=== PATIENT | female | born 1970 | race Caucasian/White ===

== ENCOUNTER 2021-05-05 11:58 | Outpatient (REF) | payer OTHER, SELFPAY ==
--- NOTE | ~2021-05-05 | MM_ITS ---
EXAMINATION: MM SCREENING DIGITAL BREAST TOMOSYNTHESIS, BILATERAL CLINICAL INFORMATION: Screening. Asymptomatic. The lifetime risk of breast cancer based on the Tyrer-Cuzick Model is 12%. COMPARISON: Outside mammography: 03/04/2017, 10/01/2010 ([facility]). TECHNIQUE: Digital breast tomosynthesis is performed in both the craniocaudal and mediolateral oblique views along with computer-aided detection (CAD). Synthesized 2D images are generated from the tomosynthesis. Additional bilateral CC views and additional right MLO view are provided. FINDINGS: There are scattered areas of fibroglandular density (ACR BI-RADS breast composition Category b). There are no significant masses, abnormal calcifications, or other abnormalities. Parenchymal pattern is similar to prior outside studies. No developing density. No significant changes. MM/MM tomosynthesis screening BI IMPRESSION: No mammographic evidence of malignancy. ASSESSMENT: BI-RADS 1: Negative RECOMMENDATION: Routine annual mammography screening. This patient's information was entered into a reminder system with a target due date for their next mammogram.
== END 2021-05-05 11:59 | disposition home or self-care (01) ==
LOC: HO.MAMMO 11:58
PROVIDERS: Visit Provider Internal Medicine
DX: Z12.31 Encounter for screening mammogram for malignant neoplasm of breast (principal)
CPT/HCPCS: 77063; 77067

== ENCOUNTER 2023-01-22 13:12 | Outpatient (REF) | payer BC, SELFPAY ==
--- NOTE | ~2023-01-22 | MM_ITS ---
EXAMINATION: MM SCREENING DIGITAL BREAST TOMOSYNTHESIS, BILATERAL CLINICAL INFORMATION: Screening. Asymptomatic. The lifetime risk of breast cancer based on the Tyrer-Cuzick Model is 11.4%. COMPARISON: Mammography: This study is compared with prior exams dating back to 2017. TECHNIQUE: Digital breast tomosynthesis is performed in both the craniocaudal and mediolateral oblique views along with computer-aided detection (CAD). Synthesized 2D images are generated from the tomosynthesis. FINDINGS: There are scattered areas of fibroglandular density (ACR BI-RADS breast composition Category b). There are no significant masses, abnormal calcifications, or other abnormalities. MM/MM tomosynthesis screening BI IMPRESSION: No mammographic evidence of malignancy. ASSESSMENT: BI-RADS BI-RADS 1 - Negative RECOMMENDATION: Routine annual mammography screening. 1 year F/U This examination should not preclude the clinical evaluation of a suspicious palpable abnormality. This patient's information was entered into a reminder system with a target due date for their next mammogram.
== END 2023-01-22 13:13 | disposition home or self-care (01) ==
LOC: HO.MAMMO 13:12
PROVIDERS: PCP Internal Medicine; Referring Provider Internal Medicine; Visit Provider Obstetrics & Gynecology
DX: Z12.31 Encounter for screening mammogram for malignant neoplasm of breast (principal)
CPT/HCPCS: 77063; 77067

== ENCOUNTER → 2023-01-22 13:15 | Outpatient (BNV) | payer BC, SELFPAY | PROVIDERS: PCP Internal Medicine; Referring Provider Internal Medicine; Visit Provider Radiology Diagnostic Radiology | DX: Z12.31 Encounter for screening mammogram for malignant neoplasm of breast (principal) | CPT/HCPCS: 77063; 77067 ==

== ENCOUNTER 2023-09-27 10:59 | Day surgery (SDC) | payer BC, SELFPAY ==
--- NOTE | 2023-09-24 12:44 | HO.ANESPROP2 ---
Documented by User: Kassidy Kolb NP 09/24/23 12:45 HPI - Anesthesia Eval Consult details Narrative: 52yo F for Colonoscopy [facility] Past Medical History Medical History Post-COVID chronic cough Neck pain Migraine HTN (hypertension) Surgical History Surgical History History of esophagogastroduodenoscopy (EGD) Hx of appendectomy Hx of section Social History Social History Patient Tobacco Use Status: Never used Tobacco Use of substances other than those prescribed or required for medical reasons: No Are you DNR?: No Advance Directives: No Advance Directives Information Provided: Yes Meds Allergies Allergy/AdvReac Type Severity Reaction Status Date / Time codeine [Codeine] Allergy Mild ITCHING Verified 09/27/23 11:46 Home Medications Medication Instructions Recorded Confirmed Last Taken Type clonazepam 0.5 mg tablet 0.5 mg PO TID 09/24/23 09/27/23 Unknown History clonidine HCl 0.1 mg tablet 0.2 mg PO BEDTIME 09/24/23 09/27/23 Unknown History fluticasone propionate 115 2 puff inhalation BID PRN 09/24/23 09/27/23 Unknown History mcg-salmeterol 21 mcg/actuation Shortness Of Breath HFA inhaler (Advair HFA) hydrocodone 10 mg-chlorpheniramine 5 ml PO Q12H 09/24/23 09/27/23 Unknown History 8 mg/5 mL oral susp extend.rel 12hr metoprolol succinate 50 mg 50 mg PO DAILY 09/24/23 09/27/23 Unknown History tablet,extended release 24 hr omeprazole 40 mg capsule,delayed 40 mg PO DAILY 09/24/23 09/27/23 Unknown History release sumatriptan succinate 100 mg tablet 100 mg PO QD-BID 09/24/23 09/27/23 Unknown History tramadol 50 mg tablet 50 mg PO QID PRN Pain 09/24/23 09/27/23 Unknown History Assessment and Plan Assessment Anesthesia Assessment: Chart Reviewed Documented by User: Soheila Walker MD 09/27/23 13:03 [facility] Past Medical History Medical History Post-COVID chronic cough Neck pain Migraine HTN (hypertension) Family History Family history of problems with anesthesia: No Surgical History Surgical History History of esophagogastroduodenoscopy (EGD) Hx of appendectomy Hx of section History of Problems with Anesthesia: No Social History Social History Patient Tobacco Use Status: Never used Tobacco Use of substances other than those prescribed or required for medical reasons: No Are you DNR?: No Advance Directives: No Advance Directives Information Provided: Yes Meds Allergies Allergy/AdvReac Type Severity Reaction Status Date / Time codeine [Codeine] Allergy Mild ITCHING Verified 09/27/23 11:46 Home Medications Medication Instructions Recorded Confirmed Last Taken Type clonazepam 0.5 mg tablet 0.5 mg PO TID 09/24/23 09/27/23 Unknown History clonidine HCl 0.1 mg tablet 0.2 mg PO BEDTIME 09/24/23 09/27/23 Unknown History fluticasone propionate 115 2 puff inhalation BID PRN 09/24/23 09/27/23 Unknown History mcg-salmeterol 21 mcg/actuation Shortness Of Breath HFA inhaler (Advair HFA) hydrocodone 10 mg-chlorpheniramine 5 ml PO Q12H 09/24/23 09/27/23 Unknown History 8 mg/5 mL oral susp extend.rel 12hr metoprolol succinate 50 mg 50 mg PO DAILY 09/24/23 09/27/23 Unknown History tablet,extended release 24 hr omeprazole 40 mg capsule,delayed 40 mg PO DAILY 09/24/23 09/27/23 Unknown History release sumatriptan succinate 100 mg tablet 100 mg PO QD-BID 09/24/23 09/27/23 Unknown History tramadol 50 mg tablet 50 mg PO QID PRN Pain 09/24/23 09/27/23 Unknown History Exam Airway Mallampati Class: II TM Dist: >3cm Neck ROM: Full Heart: rrr Lungs: cta Assessment and Plan Assessment Anesthesia Assessment: Anesthesia Plan Discussed (obesity) Final Anesthetic Review Family History of Problems with Anesthesia: No History of Problems with Anesthesia: No NPO: Yes ASA Class: III Final Preanesthetic Review: No Changes in Pt Med Stat, Meds/Allgs Chart Reviewed, Consent Obtained/Reviewed and Anes Risks/Benef Reviewed Patient Risk: Intermediate Procedure Risk: Low Anesthetic Plan Anesthetic Plan: MAC: Disposition: Standard PACU
[2023-09-27 11:43] VITALS: BMI 48.8
[2023-09-27 11:56] VITALS: BP 150/84; PULSE 85; RESP 16; TEMP 37.9; O2SAT 92
[2023-09-27] MEDS: Lactated Ringers 1,000 ML 100 ML IVCONT (12:20)
[2023-09-27 13:34] VITALS: BP 146/82; PULSE 100; RESP 16; TEMP 37.2; O2SAT 99
--- NOTE | 2023-09-27 13:34 | P.BOP_ITS ---
Brief Operative Note Date of Service: 09/27/23 Pre-op diagnosis: Screening Post-op diagnosis: other (Rectal polyps) Procedure: Colonoscopy to the cecum with hot snare polypectomy x 1, and bx/removal of polyp Surgeon: Jalil Fleming MD Anesthesia: MAC Was an Life Sciences Teacher used for this Procedure?: No Estimated blood loss (mL): 2.0 Pathology: other (A. Rectal polyps) Condition: stable Disposition: PACU
[2023-09-27 13:49] VITALS: BP 140/73; PULSE 99; RESP 16; O2SAT 99
--- NOTE | 2023-09-27 14:01 | OP_ITS ---
DATE OF SERVICE: 09/27/2023 SURGEON: Jalil Fleming MD INDICATIONS: The patient presents for evaluation of colorectal cancer screening and family history of colon cancer. Full consent has been obtained from her for this, including risks of bleeding and perforation. PREOPERATIVE DIAGNOSIS: POSTOPERATIVE DIAGNOSIS: PROCEDURE PERFORMED: Colonoscopy to the cecum with hot snare polypectomy x1 and biopsy and removal of polyp. ESTIMATED BLOOD LOSS: COMPLICATIONS: ANESTHESIA: Monitored anesthesia care. ASSISTANTS: SPECIMENS: PREOPERATIVE DIAGNOSES: Colorectal cancer screening, family history of colon cancer. POSTOPERATIVE DIAGNOSES: Colorectal cancer screening, family history of colon cancer, rectal polyps, internal and external hemorrhoids, mild diverticulosis. DESCRIPTION OF PROCEDURE: The patient was placed in left decubitus position. The digital rectal exam revealed external hemorrhoids. The Olympus video pediatric colonoscope was then entered into the rectum and advanced easily to the cecum. Once in the cecum, I did identify normal-appearing cecal pouch with appendiceal orifice and a normal-appearing ileocecal valve. The entire cecum and ileocecal valve appeared normal. The scope was slowly withdrawn assessing all mucosal surfaces carefully. Preparation was excellent. There was a mild amount of sigmoid diverticulosis. I did not visualize any sign of colitis nor angiodysplasia. In the rectum, seen both the forward viewing and retroflexed position, was an approximately 10 mm distal rectal polyp, which was removed by hot snare polypectomy in the forward viewing position. The polyp was retrieved by suction. The polypectomy site appeared clean, without any sign of residual polyp nor bleeding. Also in the rectum, was a 3 mm polyp, which was removed by cold biopsy forceps and placed in the same container. Internal hemorrhoids were noted in the retroflexed position as well. The scope was straightened and withdrawn from the patient. She tolerated the procedure well and was returned to the recovery area in stable condition. IMPRESSION: 1. Rectal polyps. 2. Mild diverticulosis. 3. Internal and external hemorrhoids. PLAN: The results of the pathology will be checked. I would recommend a repeat colonoscopy in 5 years given her family history. She was advised not to use any aspirin and NSAIDs for 1 week. She will, otherwise, see me on a p.r.n. basis. Jalil Fleming MD RMJaime/ANISA / [phone]
[2023-09-27 14:05] VITALS: BP 134/83; PULSE 80; RESP 16; TEMP 36.5; O2SAT 95
== END 2023-09-27 14:35 | disposition home or self-care (01) ==
PROVIDERS: PCP Internal Medicine; Visit Provider Internal Medicine
PROC: 0DJD8ZZ Inspection of Lower Intestinal Tract, Via Natural or Artificial Opening Endoscopic (ICD-10-PCS; CPT 45378; principal; 2023-09-27 12:50)
DX: Z12.11 Encounter for screening for malignant neoplasm of colon (principal); Z80.0 Family history of malignant neoplasm of digestive organs; Z83.719 Family history of colon polyps, unspecified; K62.1 Rectal polyp; K57.30 Diverticulosis of large intestine without perforation or abscess without bleeding; K64.8 Other hemorrhoids; K64.4 Residual hemorrhoidal skin tags; I10 Essential (primary) hypertension; G43.909 Migraine, unspecified, not intractable, without status migrainosus; Z79.51 Long term (current) use of inhaled steroids; Z79.899 Other long term (current) drug therapy
CPT/HCPCS: 45385; 45380; 88305; J2704

== ENCOUNTER 2024-01-28 12:57 | Outpatient (REF) | payer BC, SELFPAY | END 2024-01-28 12:58 | disposition home or self-care (01) | LOC: HO.MAMMO 12:57 | PROVIDERS: PCP Internal Medicine; Visit Provider Internal Medicine | DX: Z12.31 Encounter for screening mammogram for malignant neoplasm of breast (principal) | CPT/HCPCS: 77063; 77067 ==

== ENCOUNTER → 2024-01-28 13:00 | Outpatient (BNV) | payer BC, SELFPAY | PROVIDERS: PCP Internal Medicine; Visit Provider Radiology Diagnostic Radiology | DX: Z12.31 Encounter for screening mammogram for malignant neoplasm of breast (principal) | CPT/HCPCS: 77063; 77067 ==

== ENCOUNTER 2025-03-09 10:10 | Outpatient (AMB) | payer BC, SELFPAY ==
--- OUTSIDE RECORDS SUMMARY | 2023-09-27 08:10 | XMS_ITS ---
Author Organization [facility] Address [address] [place] [address] Care Team Providers Care Upholstery Covers Inspector Name Role Phone Nav MORIN, Maria E Primary Care Provider Jalil Alvarez [phone] REASON FOR VISIT screening,fam hx colon ca Problems Problem Type SNOMED Code ICD Code Onset Dates Problem Status W/U Status Risk Notes Problem Diverticular disease of colon (967316877) Diverticulosis of large intestine without perforation or abscess without bleeding (K57.30) Active confirmed Encounters Encounter Location Date Provider Diagnosis [facility] [place] Outpatient [address] [place], [place] [id number] 09/27/2023 Jalil Fleming Encounter for scre ening colonoscopy Z12.11 ; Rectal polyp K62.1 ; Family history of colon cancer Z80.0 ; Diverticulosis of large intestine without perforation or abscess without bleeding K57.30 and Other hemorrhoids K64.8 Assessments Encounter Date Diagnosis (ICD Code) Assessment Notes Treatment Notes Treatment Clinical Notes Section Notes 09/27/2023 Encounter for screening colonoscopy (ICD-10 - Z12.11) 09/27/2023 Rectal polyp (ICD-10 - K62.1) 09/27/2023 Family history of colon cancer (ICD-10 - Z80.0) 09/27/2023 Diverticulosis of large intestine without perforation or abscess without bleeding (ICD-10 - K57.30) 09/27/2023 Other hemorrhoids (ICD-10 - K64.8) Plan Of Treatment No Information Progress Notes * FLORA FALCON MDOB:1970 ( 54 yo F)Acc No.[id number]:09/27/2023 COLON WITH MAC Patient: T AFT, FLORA M Provider: Shanika Fleming MD :1970 A ge:52 Y S ex:Female Date:09/27/2023 Address:[address] [place], [place] [id number] Pcp:Maria E Chopra MD Subjective: * Chief Complaints: * 1 . Screening,fam hx colon ca. * Medical History: Objective: * Vitals: Assessment: * Assessment: 1. E ncounter for screening colonoscopy - Z12.11 (Primary) 2 . R ectal polyp - K62.1 3 . F amily history of colon cancer - Z80.0 4 . D iverticulosis of large intestine without perforation or abscess without bleeding - K57.30 5 . O ther hemorrhoids - K64.8 Plan: * Treatment: * Procedure Codes: 4 5385 LESION REMOVAL COLONOSCOPY, Modifiers: [place] , [address] COLONOSCOPY AND BIOPSY, Modifiers: 59 , PT * * The named appointment provid er may or may not be the originator of this progress note, and it is not deemed complete until electronically signed by the appointment provider. Sign off status: Pending * Provider: Shanika Fleming MD Date: 0 09/27/2023 Generated for Aisha beal/Shayan/Nicholasitting on: 0 03/09/2025 11:08 AM EDT
--- OUTSIDE RECORDS SUMMARY | 2024-12-08 07:00 | XMS_ITS ---
Author Organization [facility] [address] Address [address] [place] [address] Care Team Providers Care Medical Lab Director Name Role Phone Maria E Chopra Primary Care Provider IDALIA [facility] [phone] Encounters Encounter Location Date Provider Diagnosis [facility] [address] [address] 12/08/2024 IDALIA QUARLES Plan Of Treatment No Information Progress Notes * Nikhil FALCONOB:1970 (54 yo F)Acc No.[id number]:12/08/2024 Patient: Ashley RAY Provider: Renzo QUARLES PA-C :1970 A ge:54 Y S ex:Female Date:12/08/2024 Address:[address] [place], [place] [id number] Pcp:Maria E Chopra Subjective: * Chief Complaints: * * Medical History: Objective: * Vitals: Assessment: Plan: * Treatment: * Images: Billing Information: * Visit Code: * Procedure Codes: * Electronic signature of MICKI QUARLES PA-C on 03/09/2025 at 11:08 AM EDT Sign off status: Pending * Provider: Renzo QUARLES PA-C Date: 0 12/08/2024 Generated for Aisha beal/Shayan/eTchasityitting on: 03/09/2025 11:08 AM EDT
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
[2025-03-09 10:21] VITALS: BP 158/90; RESP 16; O2SAT 95; BMI 49.4
--- OUTSIDE RECORDS SUMMARY | 2025-03-09 11:08 | XMS_ITS | Patient Health Record ---
Author Organization [facility] Address [address] [place] [address] Care Team Providers Care Combatant Diver Officer Name Role Phone Maria E Chopra MD Primary Care Provider Jalil Alvarez [phone] Allergies No Known Allergies Reason For Referral No Information Medications Medication SIG (Take, Route, Frequency, Duration) Notes Start Date End Date Status traMADol HCl 50 MG TAKE 1 TABLET BY MOUTH 4 TIMES A DAY NEEDED FOR 30 DAYS Oral for 30 Active SUMAtriptan Succinate 100 MG TAKE 1 TABLET AT ONSET. MAY REPEAT DOSE ONCE IN 4 HOURS FOR A MAXIMUM OF 2 TABLETS A DAY Oral for 30 PRN Active clonazePAM 0.5 MG Oral for 30 Active cloNIDine HCl 0.1 MG Oral for 90 Active Hydrocod Phan-Chlorphe Phan ER 10-8 MG/5ML TAKE 5ML BY MOUTH EVERY 12 HOURS Oral for 24 Cough syumtvqi-LVS-Ko ssinex Active Advair HFA 115-21 MCG/ACT 2 puffs Inhalation Twice a day PRN 07/09/2023 Active Omeprazole 40 MG Oral for 30 PRN A ctive Metoprolol Tartrate 50 MG TAKE 1 TABLET BY MOUTH ONCE DAILY Oral for 30 Active Immunizations Vaccine Route Administration Date Status Comme nts Influenza Unknown 03/23/2023 Administered Social History Tobacco Use: Social History Observation Description Date Details (start date - stop date) Never Smoker NA - NA Tobacco Use/Smoking Question Answer Notes Patient is a nonsmoker Alcohol Screen Question Answer Notes Did you have a drink containing alcohol in the p ast year? No Points 0 Interpretation Negative Problems Problem Type SNOMED Code ICD Code Onset Dates Problem Status W/U Status Risk Notes Problem 252798993 Colon cancer screening (Z12.11) Active confirmed Problem Diverticular disease of colon (035319197) Diverticulosis of large intestine without perforation or abscess without bleeding (K57.30) Active confirmed Problem 530161171616803 Preprocedural examination (Z01.818) Active confirmed Problem 723272490 Family history o f colon cancer (Z80.0) Active confirmed Encounters Encounter Location Date Provider Diagnosis [facility] [address] [place] [address] 10/16/2024 Jalil Fleming Plan Of Treatment Future Test Test Name Order Date COLONOSCOPY 07/09/2023 Insurance Providers Payer Name Payer Address Payer Phone Subscriber Number Group Number Insured Name Patient Relationship to Insured Coverage Start Date Coverage End Date [facility] [address] [place] [address] [id number] FLORA FALCON Self - patient is the insured Medical (General) History Medical History History ICD Code HTN Migraine Some residual pulmonary issu es including cough from a previous COVID infection Neck pain Denies [place],DM,CVA,Lung disease,renal dise ase Surgical History Surgery Date(Month/Year) 1996 1998 Appendectomy 1979
--- OUTSIDE RECORDS SUMMARY | 2025-03-09 11:08 | XMS_ITS | Patient Health Record ---
Author Organization [facility] Address [address] [place] [address] Support Name Relationship Address Phone TERRIE FLORA Guarantor Unknown [phone] Reason For Referral No Information Medications Medication SIG (Take, Route, Fr equency, Duration) Notes Start Date End Date Status Ibuprofen 800MG 1 ORAL NEEDED FOR PAIN; Duration: -3 Nathanael-MJ 02/13/2013 Active Prometrium 200MG 1 Vaginal DAILY , DA YS 16 TO 25; Duration: 10 Nathanael-MJ 10/24/2013 Active Maxalt-SCIENTIFIC PROGRAMMER 10MG ORAL; Duration: -3 Nathanael-MJ 04/04/2013 Active Problems Problem Type SNOMED Code ICD Code Onset Dates Problem Status W/U Status Risk Notes Problem Obesity (110286070) Obesity, unspecified (278.00) Active confirmed Diag Problem Excessive and frequent menstruation (409227394) Excessive or frequent menstruation (626.2) Active confirmed Diag Problem Metrorrhagia (36357658) Metrorrhagia (626.6) Active confirmed Major Problem Gynecological examination normal (710318128828679) Routine gynecological examination (V72.31) Active confirmed Major Problem Dietary management surveillance (838792076) Dietary surveillance and counseling (V65.3) Active confirmed Diag Problem Exercises teaching, guidance, and counseling (489242780) Exercise counseling (V65.41) Active confirmed Diag Plan Of Treatment No Information Insurance Providers Payer Name Payer Address Payer Phone Subscriber Number Group Number Insured Name Patient Relationship to Insured Coverage Start Date Coverage End Date [employer] [address] [place], [place] [address] [phone] [id number] FLORA FALCON Self - patient is the insured
--- OUTSIDE RECORDS SUMMARY | 2025-03-09 11:09 | XMS_ITS | Patient Health Record ---
Author Organization [facility] [address] Address [address] [place] [address] Care Team Providers Care Tanker Driver Name Role Phone Maria E Chopra Primary Care Provider IDALIA Dennis Unavailable [phone] Reason For Referral No Information Plan Of Treatment No Information Insurance Providers Payer Name Payer Address Payer Phone Subscriber Number Group Number Insured Name Patient Relationship to Insured Coverage Start Date Coverage End Date [facility] [address] [place] [address] [id number] Ashley Montes Self - patient is the insured
== END 2025-03-09 10:47 | disposition home or self-care (01) ==
LOC: HO.HSM 10:11
PROVIDERS: PCP Student in an Organized Health Care Education/Training Program; Visit Provider Registered Nurse
DX: G43.909 Migraine, unspecified, not intractable, without status migrainosus (principal); G47.00 Insomnia, unspecified; F41.9 Anxiety disorder, unspecified; F32.A Depression, unspecified; G25.81 Restless legs syndrome
CPT/HCPCS: 99214

== ENCOUNTER → 2025-03-09 10:10 | Outpatient (BNVA) | payer BC, SELFPAY | PROVIDERS: PCP Student in an Organized Health Care Education/Training Program; Visit Provider Registered Nurse | DX: G43.909 Migraine, unspecified, not intractable, without status migrainosus (principal); G47.00 Insomnia, unspecified; G25.81 Restless legs syndrome; F41.9 Anxiety disorder, unspecified; F32.A Depression, unspecified; I10 Essential (primary) hypertension; Z13.89 Encounter for screening for other disorder ==

== ENCOUNTER → 2025-03-13 12:45 | Outpatient (REF) | payer BC, SELFPAY ==
--- OUTSIDE RECORDS SUMMARY | 2023-09-27 08:10 | XMS_ITS ---
Author Organization [facility] Address [address] [place] [address] Care Team Providers Care Sub Acute Care Nurse Name Role Phone Nav MORIN, Maria E Primary Care Provider Jalil Alvarez [phone] REASON FOR VISIT screening,fam hx colon ca Problems Problem Type SNOMED Code ICD Code Onset Dates Problem Status W/U Status Risk Notes Problem Diverticular disease of colon (575935685) Diverticulosis of large intestine without perforation or abscess without bleeding (K57.30) Active confirmed Encounters Encounter Location Date Provider Diagnosis [facility] Outpatient [address] [place], [place] [phone] 09/27/2023 Jalil Fleming Encounter for scre ening [...] FLORA FALCON MDOB:1970 ( 54 yo F)Acc No.[id number]:09/27/2023 COLON WITH MAC Patient: T AFT, FLORA M Provider: Shanika Fleming MD :1970 A ge:52 Y S ex:Female Date:09/27/2023 Address:[address] [place], [place] [phone] Pcp:Maria E Chopra MD Subjective: * Chief [...] 5385 LESION REMOVAL COLONOSCOPY, Modifiers: PT , [address] COLONOSCOPY AND BIOPSY, Modifiers: 59 , PT * * The named appointment provid er may or may not be the originator of this progress note, and it is not deemed complete until electronically signed by the appointment provider. Sign off status: Pending * Provider: Shanika Fleming MD Date: 0 09/27/2023 Generated for Aisha beal/Shayan/Nicholasitting on: 0 03/13/2025 03:02 PM EDT
--- OUTSIDE RECORDS SUMMARY | 2024-12-08 07:00 | XMS_ITS ---
Author Organization [facility] [address] Address [address] [place] [address] Care Team Providers Care Replanting Machine Operator Name Role Phone Maria E Chopra Primary Care Provider IDALIA [facility] [phone] Encounters Encounter Location Date Provider Diagnosis [facility] [address] [address] 12/08/2024 IDALIA QUARLES Plan Of Treatment No Information Progress Notes * Nikhil FALCONOB:1970 (54 yo F)Acc No.[id number]:12/08/2024 Patient: Ashley RAY Provider: Renzo QUARLES PA-C :1970 A ge:54 Y S ex:Female Date:12/08/2024 Address:[address] [place], [place] [phone] Pcp:Maria E Chopra Subjective: * Chief Complaints: * * Medical History: Objective: * Vitals: Assessment: Plan: * Treatment: * Images: Billing Information: * Visit Code: * Procedure Codes: * Electronic signature of MICKI QUARLES PA-C on 03/13/2025 at 03:02 PM EDT Sign off status: Pending * Provider: Renzo QUARLES PA-C Date: 12/08/2024 Generated for Aisha beal/Shayan/eTchasityitting on: 03/13/2025 03:02 PM EDT
--- OUTSIDE RECORDS SUMMARY | 2025-03-13 15:02 | XMS_ITS | Patient Health Record ---
Author Organization [facility] [address] Address [address] [place] [address] Care Team Providers Care Marketing Regional Consultant Name Role Phone Maria E Chopra Primary Care Provider IDALIA Dennis Unavailable [phone] Reason For Referral No Information Plan Of Treatment No Information Insurance Providers Payer Name Payer Address Payer Phone Subscriber Number Group Number Insured Name Patient Relationship to Insured Coverage Start Date Coverage End Date [facility] [address] [place] [address] [phone] [id number] Ashley Montes Self - patient is the insured
--- OUTSIDE RECORDS SUMMARY | 2025-03-13 15:02 | XMS_ITS | Patient Health Record ---
Author Organization [facility] Address [address] [place] [address] Support Name Relationship Address Phone TERRIE FLORA Guarantor Unknown [phone] Reason For Referral No Information Medications Medication SIG (Take, Route, Fr equency, Duration) Notes Start Date End Date Status Ibuprofen 800MG 1 ORAL NEEDED FOR PAIN; Duration: -3 Nathanael-MJ 02/13/2013 Active Prometrium 200MG 1 Vaginal DAILY , DA YS 16 TO 25; Duration: 10 Nathanael-MJ 10/24/2013 Active Maxalt-BREAKER UP 10MG ORAL; Duration: -3 Nathanael-MJ 04/04/2013 Active Problems Problem Type SNOMED Code ICD Code Onset Dates Problem Status W/U Status Risk Notes Problem Obesity (877817885) Obesity, unspecified (278.00) Active confirmed Diag Problem Excessive and frequent menstruation (915525096) Excessive or frequent menstruation (626.2) Active confirmed Diag Problem Metrorrhagia (93119613) Metrorrhagia (626.6) Active confirmed Major Problem Gynecological examination normal (372905409138440) Routine gynecological examination (V72.31) Active confirmed Major Problem Dietary management surveillance (108047486) Dietary surveillance and counseling (V65.3) Active confirmed Diag Problem Exercises teaching, guidance, and counseling (902536603) Exercise counseling (V65.41) Active confirmed Diag Plan Of Treatment No Information Insurance Providers Payer Name Payer Address Payer Phone Subscriber Number Group Number Insured Name Patient Relationship to Insured Coverage Start Date Coverage End Date [employer] [address] [place], [place] [address] [id number] FLORA FALCON Self - patient is the insured
--- OUTSIDE RECORDS SUMMARY | 2025-03-13 15:03 | XMS_ITS | Patient Health Record ---
Author Organization [facility] Address [address] [place] [address] Care Team Providers Care Automatic Fabric Cutter Name Role Phone Maria E Chopra MD Primary Care Provider Jalil Alvarez [phone] Allergies No Known Allergies Reason For Referral [...] EVERY 12 HOURS Oral for 24 Cough vggggxms-QJL-Df ssinex Active Advair HFA 115-21 MCG/ACT 2 [...] Problem Status W/U Status Risk Notes Problem 172727788 Colon cancer screening (Z12.11) Active confirmed Problem Diverticular disease of colon (859991213) Diverticulosis of large intestine without perforation or abscess without bleeding (K57.30) Active confirmed Problem 950787743251061 Preprocedural examination (Z01.818) Active confirmed Problem 584323054 Family history o f colon cancer (Z80.0) Active confirmed Encounters Encounter Location Date Provider Diagnosis [facility] [address] [place] [address] 10/16/2024 Jalil Fleming Plan Of Treatment Future Test Test Name Order Date COLONOSCOPY 07/09/2023 Insurance Providers Payer Name Payer Address Payer Phone Subscriber Number Group Number Insured Name Patient Relationship to Insured Coverage Start Date Coverage End Date [facility] [address] [place] [address] [id number] FLORA FALCON Self - patient is the insured Medical (General) History Medical History History ICD Code HTN Migraine Some residual pulmonary issu es including cough from a previous COVID infection Neck pain Denies [place],DM,CVA,Lung disease,renal dise ase Surgical History Surgery Date(Month/Year) 1996 1998 Appendectomy 1979
== END ==
LOC: HO.SL 12:45
PROVIDERS: PCP Student in an Organized Health Care Education/Training Program; Visit Provider Pediatrics
DX: G47.33 Obstructive sleep apnea (adult) (pediatric) (principal); G47.30 Sleep apnea, unspecified
CPT/HCPCS: 95806

== ENCOUNTER → 2025-03-13 21:00 | Outpatient (BNV) | payer BC, SELFPAY | PROVIDERS: PCP Student in an Organized Health Care Education/Training Program; Visit Provider Internal Medicine | DX: G47.33 Obstructive sleep apnea (adult) (pediatric) (principal) | CPT/HCPCS: 95806 ==

== ENCOUNTER 2025-05-04 11:37 | Outpatient (REF) | payer BC, SELFPAY ==
--- OUTSIDE RECORDS SUMMARY | 2024-12-08 07:00 | XMS_ITS ---
Author Organization [facility] [address] Address [address] [place] [address] Care Team Providers Care Director Of Health Education Name Role Phone Maria E Chopra Primary Care Provider IDALIA [facility] [phone] Encounters Encounter Location Date Provider Diagnosis [facility] [address] [address] 12/08/2024 IDALIA QUARLES Plan Of Treatment No Information Progress Notes * Nikhil FALCONOB:1970 (54 yo F)Acc No.[id number]:12/08/2024 Patient: Ashley RAY Provider: Renzo QUARLES PA-C :1970 A ge:54 Y S ex:Female Date:12/08/2024 Address:[address] [place], [place] [id number] Pcp:Maria E Chopra Subjective: * Chief Complaints: * * Medical History: Objective: * Vitals: Assessment: Plan: * Treatment: * Images: Billing Information: * Visit Code: * Procedure Codes: * Electronic signature of MICKI QUARLES PA-C on 05/04/2025 at 01:14 PM EDT Sign off status: Pending * Provider: Renzo QUARLES PA-C Date: 0 12/08/2024 Generated for Aisha beal/Shayan/eTchasityitting on: 1 01:14 PM EDT
--- NOTE | ~2025-05-04 | MM_ITS ---
EXAMINATION: MM SCREENING DIGITAL BREAST TOMOSYNTHESIS, BILATERAL CLINICAL INFORMATION: Screening. Asymptomatic. COMPARISON: Mammography: Comparison is made with available priors TECHNIQUE: Digital breast mammography with tomosynthesis is performed in both the craniocaudal and mediolateral oblique views along with computer-aided detection (CAD). FINDINGS: There are scattered areas of fibroglandular density. There are no significant masses, abnormal calcifications, or other abnormalities. MM/MM tomosynthesis screening BI IMPRESSION: No mammographic evidence of malignancy. ASSESSMENT: BI-RADS Category 1: Negative RECOMMENDATION: Routine annual mammography screening. 1 year F/U This examination should not preclude the clinical evaluation of a suspicious palpable abnormality. This patient's information was entered into a reminder system with a target due date for their next mammogram. Electronically signed by: Sophia Taylor DO 05/08/2025 10:23 AM ARIN
--- OUTSIDE RECORDS SUMMARY | 2025-05-04 13:15 | XMS_ITS | Clinical Summary ---
Author Organization [facility] Address [address] [place] [address] Care Team Providers Care Counseling Director Name Role Phone Unavailable Primary Care Provider Unavailabl e Encounters Date Type Department Care Team Description 04/05/2025 Transcribe Orders [facility] Rosario Davalos MD Severe obstructive sleep apnea (Primary Dx) from Last 3 Months Social History Tobacco Use Types Packs/Day Years Used Date Smoking Tobacco: Never Assessed Comments Unknown Sex and Gender Information Value Date Recorded Sex Assigned at Not on file Legal Sex Female 1:38 PM EDT Gender Identity Not on file Sexual Orientation Not on file Plan of Treatment Health Maintenance Due Date Last Done Comments Hepatitis C Virus Screening 1970 HIV Screening 09/29/1983 DTaP/Tdap/Td Vaccines (1 - Tdap) 1989 Hepatitis B Vaccines (1 of 3 - 19+ 3-dose series) 09/03 Pneumococcal Vaccines 50+ (1 of 1 - PCV) 2020 Zoster (Shingles) Vaccine (1 of 2) 2020 COVID-19 Vaccine (1 - season) 2025 RSV Vaccine 50 years and old er and Patients (1 - 1-dose 75+ series) 2045
--- OUTSIDE RECORDS SUMMARY | 2025-05-04 13:15 | XMS_ITS ---
Author Name [facility] Organization Unknown Problems Problem Status Onset Date Problem Type Date of Resoluti on Source Severe obstructive sleep apnea [facility]
--- OUTSIDE RECORDS SUMMARY | 2025-05-04 13:15 | XMS_ITS | Patient Health Record ---
Author Organization [facility] Address [address] [place] [address] Support Name Relationship Address Phone TERRIE FLORA Guarantor Unknown [phone] Reason For Referral No Information Medications Medication SIG (Take, Route, Fr equency, Duration) Notes Start Date End Date Status Ibuprofen 800MG 1 ORAL NEEDED FOR PAIN; Duration: -3 Nathanael-MJ 02/13/2013 Active Prometrium 200MG 1 Vaginal DAILY , DA YS 16 TO 25; Duration: 10 Nathanael-MJ 10/24/2013 Active Maxalt-MENTAL HEALTH CASE MANAGER 10MG ORAL; Duration: -3 Nathanael-MJ 04/04/2013 Active Problems Problem Type SNOMED Code ICD Code Onset Dates Problem Status W/U Status Risk Notes Problem Obesity (932619247) Obesity, unspecified (278.00) Active confirmed Diag Problem Excessive and frequent menstruation (041329090) Excessive or frequent menstruation (626.2) Active confirmed Diag Problem Metrorrhagia (02388236) Metrorrhagia (626.6) Active confirmed Major Problem Gynecological examination normal (279941536753262) Routine gynecological examination (V72.31) Active confirmed Major Problem Dietary management surveillance (129088775) Dietary surveillance and counseling (V65.3) Active confirmed Diag Problem Exercises teaching, guidance, and counseling (154314238) Exercise counseling (V65.41) Active confirmed Diag Plan Of Treatment No Information Insurance Providers Payer Name Payer Address Payer Phone Subscriber Number Group Number Insured Name Patient Relationship to Insured Coverage Start Date Coverage End Date [employer] [address] [place], [place] [address] [phone] [id number] FLORA FALCON Self - patient is the insured
--- OUTSIDE RECORDS SUMMARY | 2025-05-04 13:15 | XMS_ITS | Patient Health Record ---
Author Organization [facility] Address [address] [place] [address] Care Team Providers Care [place] Name Role Phone Maria E Chopra Primary Care Provider IDALIA Dennis Unavailable [phone] Reason For Referral No Information Plan Of Treatment No Information Insurance Providers Payer Name Payer Address Payer Phone Subscriber Number Group Number Insured Name Patient Relationship to Insured Coverage Start Date Coverage End Date [facility] [address] [place] [address] [id number] Ashley Montes Self - patient is the insured
--- OUTSIDE RECORDS SUMMARY | 2025-05-04 13:15 | XMS_ITS | Data Portability ---
Author Organization [place] - [facility],, YANI PAULINO MD Address [address] [address] Care Team Providers Care Rehabilitation Director Name Role Phone PHILLLIZETH Primary Care Provider Assessment No assessment recorded. Plan of Treatment Reminders Order Date Submit Date Provider Last Modified By Organization Details Last Modified Time Details Appointments None recorded. Lab estradiol , serum 2022 023 [email or web address] [facility] (Centralized Electronic Ordering - All Locations), Patient Can Go To The Location Of Their Choice, [id number] 07:37:20 FSH (follicle -stimulat ing hormone), serum 2022 023 [email or web address] [facility] (Centralized Electronic Ordering - All Locations), Patient Can Go To The Location Of Their Choice, [id number] 4 07:37:20 pap test, thinprep, cervical 2022 023 [facility] (Centralized Electronic Ordering - All Locations), Patient Can Go To The Location Of Their Choice, [id number] 3 07:34:45 urinalysi s, dipstick 2016 017 [email or web address] 1 In-Office Order, Internal Use Only DO Not Attach Compendium DO Not Attach Compendium, Do Not Delete/merge, [id number] 7 12:10:12 culture, urine 2016 017 [facility], [address] [facility], [place], [address], 7 04:21:35 pap test, thinprep, cervical 2016 017 [facility], Cytopathology Service, [address], [place], [address], 7 07:35:53 Referral None recorded. Procedures None recorded. Surgeries None recorded. Imaging MAMMO, screening , digital, bilateral - Breast Aspiratio n and/or Biopsy if needed 2022 023 [facility] (Mammo), [address] [place], [address], 3 14:42:01 MAMMO, screening , digital, bilateral 2016 017 [facility], [address], [place], [address], 7 16:31:39 Medication Orders None recorded. Patient TargetsNo targets recorded. Patient Instructions Encounter Date Encounter Id Patient Instructions Last Modified By Organization Details Last Modified Time 01/14/2017 [id number] urinary tract infection in women information [email or web address] Not available 01/14/2017 13:30:52 She is here for annual exam as a new patient. She notes her menses are regular but getting a little closer together, now every 25 to 27 days apaart, light to moderate flow. She had a history of heavy menses, she was told she had a cryo in the office, to reduce the bleeding and it did so, it WAS A FORM OF ENDOMETRIAL ABLATION. She had been advised to try Mirena but she refused because she has a history of migraine headaches. She may also have had a DVT in the remote past when she was taking the OCP, it was not certain. They are using condoms for control, though infrequent intercourse. Her partner had kidney cancer and surgery, has ED now. Her brother had colon cancer, other brother had multiple polyps. She is advised to have Colaris testing. She is given literature and will consider returning for this test. She appears to be doing well. She is advised to get 1500 mg of calcium daily into her diet and supplements combined. We discussed the benefits of adequate vitamin D supplementation to at least 400 units daily, daily aerobic exercise of 30 minutes, and stress reduction. Monthly self breast exam was taught, and stressed, and is advised to call if she discovers any new mass in the breast. Seat belt use for herself and passengers advised. The significant health benefits of becoming and remainig fit, with an optimal BMI, were also discussed. We discussed the potential reduction in chronic discomfort, the diminished risks of hypertension, diabetes, and heart disease with the proper weight management, and improved mobility as she ages. Strategies to reach and maintain her target weight wer discussed in detail, all questions answered. Not available 01/14/2017 12:11:52 12/11/2022 [id number] learning about healthy weight Not available 12/11/2022 10:13:16 She is here for annual, has not bene here since 2017. No menses in past year, prior to that had 2 to 3 years of every 2 to 4 month menses. Was started on clonidine by her PCP for BP, and noted improvement in her hot flashes, but in past 6 weeks has slick having worsening night sweats and hot flashes. Her last mammogram was 05/25, she has not had a colonoscopy yet. note from 2017: She is here for annual exam as a new patient. She notes her menses are regular but getting a little closer together, now every 25 to 27 days apaart, light to moderate flow. She had a history of heavy menses, she was told she had a cryo in the office, to reduce the bleeding and it did so, it WAS A FORM OF ENDOMETRIAL ABLATION. She had been advised to try Mirena but she refused because she has a history of migraine headaches. She may also have had a DVT in the remote past when she was taking the OCP, it was not certain. They are using condoms for control, though infrequent intercourse. Her partner had kidney cancer and surgery, has ED now. Her brother had colon cancer, other brother had multiple polyps. She is advised to have Colaris testing. She is given literature and will consider returning for this test. She appears to be doing well. She is to see a gi doctor this month to get set up for colonoscopy. She agrees ot go for mammogram, prefers [place]. Order generated. 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 Monthly self breast exam was taught, and stressed, and is advised to call if she discovers any new mass in the breast. The issues of menopause were discussed at length. The diagnosis of menopause is the absence of menses for a calendar year. It is rarely possible to still have a menses after a year, but if she has any vaginal bleeding she should consider it abnormal, postmenopausal bleeding and contact us for evaluation. We discussed the possible symptoms of hot flashes, night sweats, insomnia, iritability, short term memory issues, and the possibility of developing anxiety or panic attacks. We reviewed why this occurs, on a physiologic basis, as her estrogen levels diminish. There are reasonable ways to diminish the symptoms, including avoidance of caffeine and alcohol, cooler temperature rooms, and wearing open and loose weave absorbant clothing, or nothing at all, at night. We touched on the social and life issues that can arise at this time due to the hormonal instability. There are ways to manage the symptoms with herbal therapy. The use of black cohash, specifically Remifemin, is discussed, and she is advised that she must take it twice a day for a month prior to trying to asses whether there is any benefit, as it takes a month to begin to notice improvement. We also discussed the possible addition of hormone replacement therapy, and it was offered to her that we can discuss this further if she would like to do so. She states now that she never had a DVT, though in 2017 she noted she may have had a history of DVT. Not available 12/11/2022 10:17:38 05/03/2023 [id number] vaginal bleeding after menopause: care instructions Not available 05/03/2023 15:16:34 This visit is a phone telehealth visit. The patient consented to the visit by phone. The patient was at home at the time of the call and the provider and patient were the only people on the line. I was at [address] [facility], [address], [place], [place], at the time of the call. She has not had any menses since 11/23, until last week when she started having dark blood and then moderate to have red bleeding, for the past week, it stopped 2 days ago. She notes that her hot flashes were suddenly much worse. She also notes that her Clonidine was changed to a different physician coding specialist right before the hot flashes worsened significantly. She will get the name of her prior physician coding specialist and let me know. We discussed the Last Hurrah at length, all questions answered. check FSH and estradiol levels, if low then no intervention necessary at this time. IF elevated in menopause range then she needs a sonogram and EMB, we discussed this and she is aware. The patient was agreeable to this plan. She is aware of the limitations caused by the [employer] restrictions, and this phone call. Face to face discussion 12 minutes Not available 05/03/2023 15:20:23 Reason for Referral None Reported. Results Created Date Observation Date Name Description Value Unit Range Abnormal Flag Note LastModifiedBy Organization Detail LastModifiedTime 01/15/20 17 01/14/2017 urina lysis , dipst ick GLU Negati ve Not Available In-Office Order Internal Use Only DO Not Attach Compendium DO Not Attach Compendium, Do Not Delete/merge, 01/14/2017 11:45:14 01/15/2001/14/2017 urina lysis , dipst ick CHUN Negati ve Not Available In-Office Order Internal Use Only DO Not Attach Compendium DO Not Attach Compendium, Do Not Delete/merge, 01/14/2017 11:45:14 01/15/2001/14/2017 urina lysis , dipst ick KET Negati ve Not Available In-Office Order Internal Use Only DO Not Attach Compendium DO Not Attach Compendium, Do Not Delete/merge, 01/14/2017 11:45:14 01/15/2001/14/2017 urina lysis , dipst ick SG 1.025 Not Available In-Office Order Internal Use Only DO Not Attach Compendium DO Not Attach Compendium, Do Not Delete/merge, 01/14/2017 11:45:14 01/15/2001/14/2017 urina lysis , dipst ick BLO Hemoly zed : Trace Not Available In-Office Order Internal Use Only DO Not Attach Compendium DO Not Attach Compendium, Do Not Delete/merge, 01/14/2017 11:45:14 01/15/20 17 01/14/2017 urina lysis , dipst ick pH 6.0 Not Available In-Office Order Internal Use Only DO Not Attach Compendium DO Not Attach Compendium, Do Not Delete/merge, 01/14/2017 11:45:14 01/15/20 17 01/14/2017 urina lysis , dipst ick PRO Negati ve Not Available In-Office Order Internal Use Only DO Not Attach Compendium DO Not Attach Compendium, Do Not Delete/merge, 01/14/2017 11:45:14 01/15/2001/14/2017 urina lysis , dipst ick URO 0.2 E.U. / dl Not Available In-Office Order Internal Use Only DO Not Attach Compendium DO Not Attach Compendium, Do Not Delete/merge, 01/14/2017 11:45:14 01/15/2001/14/2017 urina lysis , dipst ick NIT negati ve Not Available In-Office Order Internal Use Only DO Not Attach Compendium DO Not Attach Compendium, Do Not Delete/merge, 01/14/2017 11:45:14 01/15/2001/14/2017 urina lysis , dipst ick REJI Negati ve Not Available In-Office Order Internal Use Only DO Not Attach Compendium DO Not Attach Compendium, Do Not Delete/merge, 01/14/2017 11:45:14 01/15/20 17 01/14/2017 cultu re, urine comments [facility] [address] [facility] [place] [address] [phone] SOURC E: URINE ,STEPHENIE N CATCH ; Not Available [facility] [address] [place], [address], 01/16/2017 04:21:35 01/15/2001/15/2017 cultu re, urine urine culture [facility] [address] [place] [address] COLLE CTION TIME: 2016 11:40 :00 AM -04:0 0 URINE CULTU RE 10,00 0 - 49,00 0 CFU/m L F URINE CULTU RE TORI L SKIN/ UROGE NITAL LULY PRESE NT. F Not Available [facility] [address] [place], [address], 01/16/2017 04:21:35 01/15/20 17 01/14/2017 pap, LB [id number] ThinP rep Pap, Image d: NEGAT TRUDI FOR SQUAM OUS INTRA EPITH ELIAL LESIO N AND MALIG GALINDO . Sp Tripathi ti, CT( CP) (Case elect jesse schumacher myra d 01 19 2017) ADEQU ACY: Satis facto ry. Endoc ervic al/tr ansfo rmati on zone compo nent absen t. SOURC E: ThinP rep Pap HPV IF ASCUS , Cervi melvin, Image d: CLINI MELVIN INFOR MATIO N: HPV If Diagn osis of ASCUS . Z12.4 Not Available [facility], Cytopathology Service [address] [place], [address], 01/20/2017 07:35:53 12/12/19 23 12/11/2022 [facility] CYTOL OGY results Angiemya ashely Name: ASHLEY MONTES nt : 1970 (Age: 52) Lab Acces lorenzo #: [id number] Colle ction Date: 023 Acces lorenzo Date: 2022 Sign Out Date: 2022 Tissu e Sourc e: 1: THINP REP AUTOMATIC TOE LASTER PAP TEST, CERVI MELVIN: Final Diagn osis: NEGAT TRUDI FOR INTRA EPITH ELIAL LESIO N OR MALIG GALINDO . Satis facto ry for evalu ation . Endoc ervic al/tr ansfo rmati on zone ABSEN T. Clini melvin Histo ry: Date of Last Menst rual Perio d: not avail able Menst rual Histo ry: not avail able Contr acept trudi Histo ry: not avail able Ancil leonard Testi ng: HPV (ASCU S) Case image d by the ThinP rep Imagi ng Syste m with milagro montez or clari Quinteros rmed at [facility] ate Refer en[facility] Cytol ogy, [address] [place] Clini melvin Histo ry (othe r): Z01.4 19 Phone #: [phone], On-Ca ll Patho logis t: [id number] Not Available [facility] (Centralized Electronic Ordering - All Locations) Patient Can Go To The Location Of Their Choice, [address] 12/31/2022 08:21:35 03/04/20 17 03/04/2017 MAMMO , scree ted, digit al, bilat eral No observ ation record ed. Not Available 02/04 19:29:57 02/13/20 23 01/22/2023 MAMMO , scree ted, digit al, bilat eral No observ ation record ed. [address] [place], [address], 02/15/2023 07:21:38 Result Notes None recorded. Problems Name Problem SNOMED Code Status Onset Date Resolution Date Notes Provider Name and Address Organization Details Recorded Time Migraine 41690143 Active 2016 Xiomara duong [place] - Nayely in [facility], 7 11:17:39 [facility]zo 15200642 Active 2016 Xiomara duong [place] - Nayely in [facility], 7 11:18:07 History of endometr iosis [id number] 072374 Completed 201601/14/2017 Yani Paulino MD [address] [facility], [address], [place], [address] [facility] [place] Adler in [facility], 7 11:50:07 History of urinary stone 193608075 Active 2016 [place] Mccain in [facility], 7 11:37:55 Deep venous thrombos is 190665795 Active 2016 She had been advised to try Mirena but she refused because she has a history of migraine headache s. She may also have had a DVT in the remote past when she was taking the OCP, it was not certain. Yani Paulino MD [address], [place], [phone], [place] - [facility], 7 11:50:01 Family history of cancer of colon 287880231 Active 2016 brother had colon cancer, other brother had multiple polyps. She is advised to have Colaris testing. She is given literatu re and will consider returnin g for this test. 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 Procedures Surgical History Date Name Laterality Status Provider Name and Address Organization Details Recorded Time 01/23/20 23 Most Recent Mammogram completed Alis Adler in [facility], 05/03/2023 15:02:05 07/05/19 07 Endometrial Ablation completed Yani Paulino MD [address], [place], [phone], [place] Matilde Adler in [facility], 01/14/2017 11:52:18 07/05/18 99 Caesarean Section completed Xiomara Adler in [facility], 01/14/2017 11:26:49 07/05/18 97 Caesarean Section completed Xiomara Adler in [facility], 01/14/2017 11:26:36 07/05/18 96 Dilation and Curettage completed Xiomara Adler in [facility], 01/14/2017 11:27:15 07/05/18 80 Appendectomy completed Xiomara Adler in [facility], 01/14/2017 11:28:05 Cryocautery of cervix completed Xiomara Hernandez [place] - [facility], 01/14/2017 11:30:31 Imaging Results None recorded. Procedure Notes None recorded. Medical Equipment None Reported. Allergies Allergen ID Allergen Name Allergen Category Reaction Reaction Severity Criticality Documentation Date Start Date Code Code System Note Provider Name and Address Organization Details Recorded Time codeine medicatio n rash Not available Not available 01/14/2017 2670 RxNorm Xiomara [place] Aburto in [facility], 7 11:13:07 Medications Name Sig Start Date Stop Date Status Note LastModified by Organization Details LastModified Time amoxicillin 500 mg capsule 02/27 completed Not Available Not Available Not Available ivermectin 3 mg tablet 12/11 completed Not Available Not Available Not Available clonidine HCl 0.1 mg tablet TAKE 2 TABLETS BY MOUTH DAILY AT BEDTIME active Not Available Not Available No t Available prednisone 10 mg tablet TAKE 5 TABLETS BY MOUTH DAILY FOR 3 DAYS, THEN TAKE 4TABS FOR 3 DAYS, THEN TAKE 3TABS FOR 3 DAYS, THEN TAKE 2TABS FOR 3 DAYS, THEN TAKE 1TAB 12/11 completed Not Available Not Available Not Available trazodone 50 mg tablet TAKE 1 TABLET BY MOUTH EVERY DAY AT BEDTIME NEEDED active Not Available Not Available No t Available azithromyci n 250 mg tablet TAKE 2 TABLETS BY MOUTH TODAY, THEN TAKE 1 TABLET DAILY FOR 4 DAYS DIRECTED 05/03 completed Not Available Not Available Not Available ibuprofen 800 mg tablet TAKE ONE TABLET BY MOUTH THREE TIMES A DAY FOR 30 DAYS NEEDED FOR PAIN WITH FOOD OR MILK 12/11 completed Not Available Not Available Not Available metoprolol succinate ER 50 mg tablet,exte nded release 24 hr TAKE 1 TABLET BY MOUTH EVERY DAY active Not Available Not Available No t Available sumatriptan 100 mg tablet TAKE 1 TABLET BY MOUTH AT ONSET. MAY REPEAT DOSE ONCE IN 4 HOURS. MAX 2 TABLETS PER DAY active Not Available Not Available No t Available hydrocodone 5 mg-acetamin ophen 325 mg tablet 01/14 completed Not Available Not Available Not Available almotriptan malate 12.5 mg tablet 01/14 completed Not Available Not Available Not Available prednisone 20 mg tablet TAKE TWO TABLETS BY MOUTH EVERY DAY FOR 7 DAYS 12/11 completed Not Available Not Available Not Available clonazepam 0.5 mg tablet TAKE ONE TABLET BY MOUTH THREE TIMES A DAY active Not Available Not Available No t Available clonazepam 1 mg tablet TAKE ONE TABLET BY MOUTH TWICE A DAY ( DO NOT FILL UNTIL 10-30-19) 12/11 completed Not Available Not Available Not Available promethazin e 6.25 mg-codeine 10 mg/5 mL syrup TAKE ONE TEASPOONF UL (5ML) BY MOUTH ONCE DAILY AT BEDTIME FOR 7 DAYS NEEDED FOR COUGH (NOT TO EXCEED 30ML/24HO URS) 02/27 completed Not Available Not Available Not Available penicillin V potassium 500 mg tablet 02/27 completed Not Available Not Available Not Available zolmitripta n 5 mg disintegrat ing tablet 02/27 completed Not Available Not Available Not Available omeprazole 40 mg capsule,del ayed release TAKE ONE CAPSULE BY MOUTH ONCE DAILY BEFORE A MEAL active Not Available Not Available No t Available tramadol 50 mg tablet TAKE 1 TABLET BY MOUTH 4 TIMES A DAY NEEDED active Not Available Not Available No t Available zolmitripta n 5 mg tablet 01/14 completed Not Available Not Available Not Available acyclovir 800 mg tablet TAKE ONE TABLET BY MOUTH FOUR TIMES A DAY 12/11 completed Not Available Not Available Not Available pramipexole 0.5 mg tablet TAKE 1 TABLET BY MOUTH EVERY EVENING active Not Available Not Available No t Available oxycodone-a cetaminophe n 5 mg-325 mg tablet TAKE ONE TABLET BY MOUTH TWICE A DAY NEEDED FOR SEVERE PAIN 12/11 completed Not Available Not Available Not Available methocarbam ol 750 mg tablet TAKE ONE TABLET BY MOUTH THREE TIMES A DAY 12/11 completed Not Available Not Available Not Available baclofen 10 mg tablet 01/14 completed Not Available Not Available Not Available benzonatate 100 mg capsule TAKE ONE CAPSULE BY MOUTH THREE TIMES A DAY NEEDED FOR COUGH FOR 14 DAYS 12/11 completed Not Available Not Available Not Available rizatriptan 10 mg disintegrat ing tablet DISSOLVE 1 TABLET ON THE TONGUE DAILY NEEDED FOR MIGRAINE HEADACHE. MAY REPEAT ONCE IN 2 HOURS IF NEEDED. MAX 2TABS/24H RS. (DO NOT TAKE S 12/11 completed Not Available Not Available Not Available oseltamivir 75 mg capsule TAKE ONE CAPSULE BY MOUTH TWICE A DAY FOR 5 DAYS 02/27 completed Not Available Not Available Not Available prednisone 50 mg tablet TAKE ONE TABLET BY MOUTH EVERY DAY FOR 5 DAYS 02/27 completed Not Available Not Available Not Available naproxen 500 mg tablet,corbin yed release 01/14 completed Not Available Not Available Not Available metoprolol tartrate 50 mg tablet TAKE 1 TABLET BY MOUTH ONCE DAILY 12/11 completed Not Available Not Available Not Available orphenadrin e citrate ER 100 mg tablet,exte nded release 01/14 completed Not Available Not Available Not Available hydrocodone -homatropin e 5 mg-1.5 mg/5 mL oral solution 02/27 completed Not Available Not Available Not Available montelukast 10 mg tablet TAKE ONE TABLET BY MOUTH EVERY DAY IN THE EVENING 12/11 completed Not Available Not Available Not Available mirtazapine 15 mg tablet 01/14 completed Not Available Not Available Not Available gabapentin 100 mg capsule 01/14 completed Not Available Not Available Not Available ibuprofen 600 mg tablet TAKE ONE TABLET BY MOUTH EVERY 6 HOURS NEEDED FOR PAIN 12/11 completed Not Available Not Available Not Available methylpredn isolone 4 mg tablets in a dose pack 02/27 completed Not Available Not Available Not Available hydrocodone 10 mg-chlorphe niramine 8 mg/5 mL oral susp extend.rel 12hr TAKE 5 MLS BY MOUTH EVERY 12 HOURS active Not Available Not Available No t Available albuterol sulfate HFA 90 mcg/actuati on aerosol inhaler INHALE TWO PUFFS BY MOUTH EVERY 6 HOURS NEEDED active Not Available Not Available No t Available amoxicillin 875 mg-potassiu m clavulanate 125 mg tablet 02/27 completed Not Available Not Available Not Available oxycodone 5 mg tablet 01/14 completed Not Available Not Available Not Available azithromyci n 500 mg tablet 02/27 completed Not Available Not Available Not Available cyclobenzap rine 5 mg tablet 01/14 completed Not Available Not Available Not Available Flovent HFA 110 mcg/actuati on aerosol inhaler INHALE 2 PUFFS BY MOUTH TWICE A DAY. RINSE MOUTH AND THROAT AFTER USE. active Not Available Not Available No t Available G Tussin AC 10 mg-100 mg/5 mL oral liquid TAKE 5 ML ( 1 TEASPOONF UL) BY MOUTH THREE TIMES A DAY NEEDED FOR COUGH FOR 5 DAYS 02/27 completed Not Available Not Available Not Available Paxlovid 300 mg (150 mg x 2)-100 mg tablets in a dose pack TAKE 3 TABLETS BY MOUTH TWICE A DAY FOR 5 DAYS DIRECTED ON PACKAGE 12/11 completed Not Available Not Available Not Available Vitals Date Recorded Body weight Body mass index (BMI) Body height Systolic And Diastolic Provider Name and Address Organization Details Last Updated DateTime 12/11/2022 290798.42 g 50.2 kg/m2 153.04 cm 141/66 mm[Hg] Kirsty Adler in [facility], 12/11/2022 09:29:26 Date Recorded Body height Body mass index (BMI) Body weight Heart rate Systolic And Diastolic Provider Name and Address Organization Details Last Updated DateTime 01/14/2017 153.04 cm 43.2 kg/m2 566559.1 g 61 /min 135/65 mm[Hg] Xiomara Hernandez [place] - Nayely in [facility], 01/14/2017 11:12:36 Date Recorded Body height Provider Name an d Address Organization Details Last Updated DateTime 05/03/2023 153.04 cm Alis Yvette tan in [facility], 05/03/2023 15:00:00 Social History Question Answer Notes LastModified by Organizat ion Details LastModified Time Tobacco Smoking Status Former Smoker Ximoara duong [place] - [facility], 01/14/2017 11:23:38 What Is Your Level Of Caffeine Consumption? Moderate Information not available 01/14/2017 In The 14 Days Before Symptom Onset, Have You Had Close Contact With A Laboratory-confir med COVID-19 While That Case Was Ill? No Information not available 12/11/2022 In The 14 Days Before Symptom Onset, Have You Had Close Contact With A Person Who Is Under Investigation For COVID-19 While That Person Was Ill? No Information not available 12/11/2022 Have You Been To An Area Known To Be High Risk For COVID-19? No Information not available 12/11/2022 What Type Of Diet Are You Following? SPECIFIC Watches What She Eats Information not available 12/11/2022 Which Illicit Or Recreational Drugs Have You Used? None Information not available 01/14/2017 Do You Reside In Or Have You Traveled To An Area Where Ebola Virus Transmission Is Active? No Information not available 01/14/2017 Education 2 Year College Information not available 01/14/2017 How Many Days In The Past Year Have You Had A Heavy Drinking Consumption (4+ Female, 5+ Male)? 0 Information no t available 01/14/2017 Are There Any Guns Present In Your Home? No Information not available 12/11/2022 High Number Of Sexual Partners Yes Information not available 01/14/2017 To Which Gender Do You Self-identify? Female Information not available 01/14/2017 Marital Status Informatio n not available 01/14/2017 What Was The Date Of Your Most Recent Tobacco Screening? 05/03/2023 Information not available 05/03/2023 Are You Sexually Active? Yes Information not available 01/14/2017 How Much Tobacco Do You Smoke? No Information not available 01/14/2017 How Many Years Have You Smoked Tobacco? 1 Information not available 01/14/2017 Have You Recently (within The Last 12 Weeks, Or During A Current ) Traveled To Or Lived In A Zika-affected Area? No Information not available 01/14/2017 Sex: Female Functional Status Question Answer Note LastModified by Organizat ion Details LastModified Time Do you use any illicit or recreational drugs? No Information not available 12/11/2022 Do you or have you ever used any other forms of tobacco or nicotine? No Information not available 12/11/2022 What is your level of alcohol consumption? None Information not available 01/14/2017 Are you currently employed? 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 Moderate Information not available 12/11/2022 Mental Status Question Answer Note LastModified by Organization D etails LastModified Time Do you feel stressed (tense, restless, nervous, or anxious, or unable to sleep at night)? [id number] Information not available 05/03/2023 Family History Relationship Description Onset Age of this Age Resolved Age Notes LastModified by Organization Details LastModified Time Brother Malignant neoplasm of colon 50 [email or web address] Not available 2016 11:19:47 Brother Polyp of colon middle brothe r, Sen having colono scopie s since he was in his 20's for non-ma lignan t polyps mpotorski Not available 01/14/2017 11:22:46 Mother Essential hypertension mpotorski Not available 11:20:23 Maternal Aunt Malignant neoplasm of breast 45 Not available 01/02 11:50:44 Medical History Condition Response Anesthesia complications N High Blood Pressure N Candidate for MyRisk panel N Autoimmune Condition N Thyroid Problems N Kidney or Bladder Problems Y GI Problems N Lung Disease N Depression N Defects or Inherited Disease N History of Ovarian Cancer N Anemia N History of Breast Cancer N ROSARIO exposure N BRCA testing in past N Osteopenia N Psychiatric Illness N Anxiety Disorder N Diabetes N Arthritis Y Headaches or Migraines Y Infertility N Asthma N History of Cancer N Endometriosis Y Hepatitis N Heart Disease N Hypertension Y Osteoporosis N Gynecological History Statement/Question Response Dysmenorrhea Y Flow Heavy Date of LMP 11/12/2021 Frequency of Cycle (Q days) 25 Menses Monthly Y Duration of Flow (days) 4 Age at Menarche 13 Current Control Method None Most Recent Mammogram 01/22/2023 Obstetrics History GPAL:G 5 P 1 1 3 2 Type Value Full Term 1 Induced 1 Spontaneous 2 Premature 1 Living 2 Total 5 Immunizations Vaccine Type Date Status Note Provider Nam e and Address Organization Details Recorded Time influenza, unspecified formulation 6 completed MCKENZIE Mccain in [facility], 01/14/2017 11:17:18 COVID-19, mRNA, LNP-S, PF, 30 mcg/0.3 mL dose 1 completed MCKENZIE Leary in [facility], 05/03/2023 15:00:10 COVID-19, mRNA, LNP-S, PF, 30 mcg/0.3 mL dose 1 completed MCKENZIE Leary in [facility], 05/03/2023 15:00:10 Influenza, split virus, trivalent, preservative 2 completed Alis Meczywor null, [place] [facility], 05/03/2023 15:00:10 Influenza, split virus, quadrivalent, PF 0 completed Alis [place]eczywor [place], [place] [facility], 05/03/2023 15:00:10 Influenza, split virus, quadrivalent, PF 9 completed Alis [place]eczywor null, [place] [facility], 05/03/2023 15:00:10 Past Encounters Encounter ID Performer Location Encounter Start Date Encounter Closed Date Diagnosis/Indication Diagnosis SNOMED-CT Code Diagnosis ICD10 Code Diagnosis IMO Codes Diagnosis Note [id number] MD YANI Lovelace MD [address] [facility] [place] [address] 01/14/2017 10:52:47 01/14/2017 14:29:21 Specialized medical examination 72141484 Z01.419 Screening mammography 24 981561 Z12.31 Acute lowe r urinary tract infection 657105736 R30.0 Family his tory of cancer of colon 915733777 Z80.0 [id number] MD YANI Lovelace MD [address] [facility] [place] [address] 12/11/2022 09:21:27 12/11/2022 10:19:01 Specialized medical examination 28477390 Z01.419 Screening for malignant neoplasm of rectum 856317758 Z12.12 Screening mammography 24 386344 Z12.31 [id number] MD YANI Lovelace MD [address] [facility] [place] [address] 05/03/2023 14:58:23 05/03/2023 15:58:36 Postmenopausal bleeding 40615271 N95.0 Health Concerns Section Related Observation LastModified by Organization Detai ls LastModified Time None Recorded Concern Status LastModified by Organization Details LastModified Time None Recorded Advance Directives Directive None Recorded Payers Insurance Date Sequence Insurance Name Policy Number Policy Snow Covered Member ID Snow Member ID Guarantor Name 12/11/2022 1 [employer] [id number] Sebastien Montes [id number] Ashley Montes 04/30/2023 1 [place] [id number] Sebastien Montes FWRA [id number] Ashley Montes Notes Date Note Type Note Provider Name and Address Organization Details Recorded Time 01/14/2017 text/html She is here for annual exam mas a new patient. She notes her menses are regular but getting a little closer together. She had a history of heavy menses, she was told she had a cryo in the office, to reduce the bleeding and it did so, it WAS A FORM OF ENDOMETRIAL ABLATION. She had been advised to try Mirena but she refused because she has a history of migraine headaches. She may also have had a DVT in the remote past when she was taking the OCP, it was not certain. They are using condoms for control. Yani Paulino MD [address] [facility],[address], [place], [address], [place] [facility], 01/14/2017 12:13:07 12/11/2022 text/html She is here for annual, has not bene here since 2017. No menses in past year, prior to that had 2 to 3 years of every 2 to 4 month menses. Was started on clonidine by her PCP for BP, and noted improvement in her hot flashes, but in past 6 weeks has slick having worsening night sweats and hot flashes. Her last mammogram was 05/25, she has not had a colonoscopy yet. note from 2017: She is here for annual exam as a new patient. She notes her menses are regular but getting a little closer together, now every 25 to 27 days apaart, light to moderate flow.She had a history of heavy menses, she was told she had a cryo in the office, to reduce the bleeding and it did so, it WAS A FORM OF ENDOMETRIAL ABLATION.She had been advised to try Mirena but she refused because she has a history of migraine headaches. She may also have had a DVT in the remote past when she was taking the OCP, it was not certain.They are using condoms for control, though infrequent intercourse. Her partner had kidney cancer and surgery, has ED now.Her brother had colon cancer, other brother had multiple polyps. She is advised to have Colaris testing. She is given literature and will consider returning for this test. Yani Paulino MD [address] [facility],[address], [place], [address], [facility], 12/11/2022 10:17:54 05/03/2023 text/html This visit is a phone telehealth visit. The patient consented to the visit by phone. The patient was at home at the time of the call and the provider and patient were the only people on the line. I was at [address] [facility], [address], [place], [place], at the time of the call. She has not had any menses since 11/23, until last week when she started having dark blood and then moderate to have red bleeding, for the past week, it stopped 2 days ago. She notes that her hot flashes were suddenly much worse. Yani Paulino MD [address] [facility],[address], [place], [address], [facility], 05/03/2023 15:36:41 OBGyn Episode No OBEpisode recorded.
--- OUTSIDE RECORDS SUMMARY | 2025-05-04 13:15 | XMS_ITS | Patient Health Record ---
Author Organization [facility] Address [address] [place] [address] Care Team Providers Care Senior Environmental Engineer Name Role Phone Maria E Chopra MD Primary Care Provider Jalil Alvarez [phone] Allergies No Known Allergies Reason For Referral No Information Medications Medication SIG (Take, Route, Frequency, Duration) Notes Start Date End Date Status traMADol HCl 50 MG TAKE 1 TABLET BY MOUTH 4 TIMES A DAY NEEDED FOR 30 DAYS Oral; Duration: 30 Active SUMAtriptan Succinate 100 MG TAKE 1 TABLET AT ONSET. MAY REPEAT DOSE ONCE IN 4 HOURS FOR A MAXIMUM OF 2 TABLETS A DAY Oral; Duration: 30 PRN Active clonazePAM 0.5 MG Oral; Duration: 30 Active cloNIDine HCl 0.1 MG Oral; Duration: 90 Active Hydrocod Phan-Chlorphe Phan ER 10-8 MG/5ML TAKE 5ML BY MOUTH EVERY 12 HOURS Oral; Duration: 24 Cough [id number]-WPI-Vu ssinex Active Advair HFA 115-21 MCG/ACT 2 puffs Inhalation Twice a day PRN 07/09/2023 Active Omeprazole 40 MG Oral; Duration: 30 PRN Active Metoprolol Tartrate 50 MG TAKE 1 TABLET BY MOUTH ONCE DAILY Oral; Duration: 30 Active Immunizations Vaccine Route Administration Date [...] Problem Status W/U Status Risk Notes Problem Colon cancer screening (846666933) Colon cancer screening (Z12.11) Active confirmed Problem Diverticular disease of colon (848875028) Diverticulosis of large intestine without perforation or abscess without bleeding (K57.30) Active confirmed Problem Preprocedural examination (025357537389056) Preprocedural examination (Z01.818) Active confirmed Problem Family History of Cancer of Colon (Situation) (493790339) Family history of colon cancer (Z80.0) Active confirmed Encounters Encounter Location Date Provider Diagnosis [facility] [address] [place] [address] 10/16/2024 Jalil Fleming Plan Of Treatment Future Test Test Name Order Date COLONOSCOPY 07/09/2023 Insurance Providers Payer Name Payer Address Payer Phone Subscriber Number Group Number Insured Name Patient Relationship to Insured Coverage Start Date Coverage End Date [facility] [address] [place] [address] [id number] FLORA FALCON Self - patient is the insured Medical (General) History Medical History History ICD Code HTN Migraine Some residual pulmonary issu es including cough from a previous COVID infection Neck pain Denies MT,DM,CVA,Lung disease,renal dise ase Surgical History Surgery Date(Month/Year) 1996 1998 Appendectomy 1979
== END 2025-05-04 11:38 | disposition home or self-care (01) ==
LOC: HO.MAMMO 11:37
PROVIDERS: PCP Student in an Organized Health Care Education/Training Program; Visit Provider Student in an Organized Health Care Education/Training Program
DX: Z12.31 Encounter for screening mammogram for malignant neoplasm of breast (principal)
CPT/HCPCS: 77063; 77067

== ENCOUNTER → 2025-05-04 12:00 | Outpatient (BNV) | payer BC, SELFPAY | PROVIDERS: PCP Student in an Organized Health Care Education/Training Program; Visit Provider Internal Medicine | DX: Z12.31 Encounter for screening mammogram for malignant neoplasm of breast (principal) | CPT/HCPCS: 77063; 77067 ==